=== PATIENT | female | born 1970 | race Two or more races ===

== ENCOUNTER 2022-04-28 08:02 | Emergency (ER) | payer BC, OTHER ==
[~2022-04-28] VITALS: Ht 160 cm; Wt 160.0 kg
[2022-04-28 08:58] LABS: Urine Bacteria NONE SEEN /hpf (None Seen); Urine Blood Negative /uL (Negative); Urine Mucus FEW (None Seen); Urine Specific Gravity 1.022 (1.001-1.035); Urine WBC 2 /hpf (0 - 5)
[2022-04-28 10:22] VITALS: BP 145/96
[2022-04-28] MEDS ORDERED: SODIUM CHLORIDE 0.9% 1,000 ML IV ONE (11:15)
[2022-04-28] MEDS ORDERED: METOCLOPRAMIDE HCL 5MG/ml INJ 2ml VIAL IV ONE (11:15)
[2022-04-28] MEDS ORDERED: KETOROLAC TROMETH 30 MG/ML 1ML VIAL IV ONE (11:15)
[2022-04-28] MEDS ORDERED: CYCL-837 PO (15:32)
[2022-04-28] MEDS ORDERED: DICL50TA2 PO (15:32)
[2022-04-28] MEDS ORDERED: TRAM50TA2 PO (15:32)
== END 2022-04-28 16:07 | disposition home or self-care (01) ==
LOC: ER 08:02
DX: M54.16 Radiculopathy, lumbar region (principal); M46.1 Sacroiliitis, not elsewhere classified; J45.909 Unspecified asthma, uncomplicated; E78.5 Hyperlipidemia, unspecified
CPT/HCPCS: 72131; 81001; 96361; 96374; 96375; 99284; J1885; J2765; J7030